=== PATIENT | female | born 1990 | race Caucasian/White ===

== ENCOUNTER 2018-08-04 14:57 | Emergency (ER) | payer MEDICAID ==
[~2018-08-04] VITALS: Wt 117.4 kg
[2018-08-04 15:28] VITALS: BP 174/83; PULSE 89; RESP 18
[2018-08-04] MEDS ORDERED: LIDOCAINE 1% (MDV) 10 ML INJ INJ STA (17:22)
[2018-08-04] MEDS ORDERED: IBUP800T48 PO (17:36)
[2018-08-04] MEDS ORDERED: HYDR-4011 PO (17:36)
[2018-08-04] MEDS ORDERED: CLIN300C10 PO (17:36)
--- NOTE | 2018-08-04 17:39 | ERD ---
ER Documentation Chief Complaint Chief Complaint R big toe w ingrown toenail x3d; appears red/ swollen w pus discharge. HPI This is a 28-year-old female who presents with ingrown nail in the right big toe that she states she has had for 3 days that began shortly after cutting her toenails. It is painful. She actually states it was more red and more swollen but it is starting to improve. No fever. No numbness or tingling. ROS All systems reviewed and are negative except as per history of present illness. Medications Home Meds Active Scripts Hydrocodone/Acetaminophen ([place] 5-325 Tablet) 1 Each Tablet, 1 TAB PO Q6H PRN for PAIN, #15 TAB Prov:RESHMA NIXON PA-C 08/04/18 Ibuprofen* (Motrin*) 800 Mg Tab, 800 MG PO Q6H PRN for PAIN AND OR ELEVATED TEMP, #30 TAB Prov:RESHMA NIXON PA-C 08/04/18 Clindamycin Hcl* (Clindamycin Hcl*) 300 Mg Capsule, 300 MG PO TID for 10 Days, CAP Prov:RESHMA NIXON PA-C 08/04/18 Allergies Allergies: Coded Allergies: No Known Allergy (Unverified , 08/04/18) PMhx/Soc Medical and Surgical Hx: pt denies Medical Hx, pt denies Surgical Hx Hx Alcohol Use: No Hx Substance Use: No Hx Tobacco Use: No Smoking Status: Never smoker FmHx Family History: No diabetes Physical Exam Vitals Vital Signs Date Temp Pulse Resp B/P (MAP) Pulse Ox O2 O2 Flow FiO2 Time Delivery Rate 08/04/18 99.0 89 18 174/83 97 15:28 (113) Physical Exam Const: No acute distress Head: Atraumatic Eyes: Normal Conjunctiva ENT: Normal External Ears, Nose and Mouth. Neck: Full range of motion. No meningismus. Resp: Clear to auscultation bilaterally Cardio: Regular rate and rhythm, no murmurs Foot: Ingrowing nail on the great toe with surrounding erythema and mild edema and tenderness and scant purulent drainage, sensation to light touch intact Results 24 hrs Current Medications Medications Dose Sig/Tiffany Start Time Status Last (Trade) Ordered Route PRN Stop Time Admin Dose Reason Admin Lidocaine 10 ml ONCE STAT 08/04/18 DC HCl INJ 17:22 08/04/18 (Lidocaine 17:24 1% (Mdv) 10 ml) Procedures/MDM Is a 28-year-old female who has ingrown nail. Digital block was used with 1% lidocaine to anesthetize the foot and then the ingrown portion of the nail was removed. Was appropriately dressed and bandaged and she was given a prescription for clindamycin and ibuprofen and [place]. Patient counseled regarding my diagnostic impression and care plan. Prior to discharge all questions answered. Pt agrees with treatment plan and understands strict return precautions. Pt is instructed to follow up with primary care provider within 24- 48 hours. Precautionary instructions provided including instructions to return to the ER if not improving or for any worsening or changing symptoms or concerns. Departure Diagnosis: Primary Impression: Ingrown nail Condition: Stable Patient Instructions: Ingrown Toenail, Excised Additional Instructions: Call your primary care doctor TOMORROW for an appointment during the next 1-2 days.See the doctor sooner or return here if your condition worsens before your appointment time. RESHMA NIXON PA-C August 04, 2018 17:39
== END 2018-08-04 18:03 | disposition home or self-care (01) ==
LOC: FTE 14:57
DX: L60.0 Ingrowing nail (principal)
CPT/HCPCS: 11765; Z7502; Z7610